=== PATIENT | male | born 1995 | race Caucasian/White ===

== ENCOUNTER 2023-02-03 20:57 | Emergency (ER) | payer SELFPAY ==
[2023-02-03 21:02] VITALS: RESP 18; TEMP 98.2; BMI 29.1
[2023-02-03] MEDS ORDERED: ACETAMINOPHEN 1000 MG/100 ML BAG IVPB ONE (21:56)
[2023-02-03] MEDS ORDERED: ACETAMINOPHEN INJECTION 100 ML IVPB ONE (22:05)
[2023-02-03 22:18] LABS: BASO % 0.4 % (0-2.0); EOS % 3.3 % (0-4.5); HEMATOCRIT 43.1 % (35.4-49); HEMOGLOBIN 15.2 GM/dL (11.7-16.9); LYMPH % 25.2 % (8-40); MCH 29.3 pg (25.7-33.7); MCHC 35.2 g/dl (32.0-35.9); MEAN CELL VOLUME 83.2 fl (80-96); MEAN PLT VOLUME 8.4 fl (7.5-11.1); MONO % 7.3 % (3.8-10.2); NEUT % 63.8 % (42.8-82.8); PH,URINE 7.5 (5.0-8.0); PLATELET COUNT 245 10^3/uL (134-434); RBC 5.18 M/mm3 (4.00-5.60); URINE APPEARANCE CLEAR; URINE BILIRUBIN NEGATIVE (NEGATIVE); URINE COLOR YELLOW; URINE GLUCOSE (UA) NEGATIVE (NEGATIVE); URINE KETONE TRACE (NEGATIVE); URINE LEUK ESTERASE NEGATIVE (NEGATIVE); URINE NITRITE NEGATIVE (NEGATIVE); URINE PROTEIN NEGATIVE (NEGATIVE); WHITE BLOOD COUNT 5.6 K/mm3 (4.0-10.0)
[2023-02-03 22:37] LABS: CALCIUM 9.6 mg/dL (8.5-10.1)
[2023-02-03 22:38] LABS: ALBUMIN 4.3 g/dl (3.4-5.0); BLOOD UREA NITROGEN 16.4 mg/dL (7-18)
[2023-02-03 22:41] LABS: CREATININE 1.1 mg/dL (0.55-1.3)
[2023-02-03 22:43] LABS: BILIRUBIN,TOTAL 0.5 mg/dL (0.2-1); TOT PROT 7.4 g/dl (6.4-8.2)
[2023-02-03] MEDS ORDERED: KETOROLAC TROMETHAMINE 30 MG/1 ML VIAL ONE (22:46)
[2023-02-03] MEDS ORDERED: KETOROLAC TROMETHAMINE 30 MG/1 ML VIAL IVPUSH ONE (22:51)
[2023-02-03] MEDS ORDERED: LIDOCAINE 5% TOPICAL PATCH TP ONE (22:51)
[2023-02-03] MEDS ORDERED: LIDOCAINE 5% TOPICAL PATCH ONE (22:52)
[2023-02-04 00:33] VITALS: BP 123/67; PULSE 80
[2023-02-04] MEDS ORDERED: LIDOCAINE PATCH REMOVAL MC ONE (11:00)
== END 2023-02-04 00:33 | disposition home or self-care (01) ==
LOC: JER 20:57 → JERFT 20:57 → JER 02-04 00:33
PROC: 3E033GC Introduction of Other Therapeutic Substance into Peripheral Vein, Percutaneous Approach (ICD-10-PCS; principal; 2023-02-03)
DX: M54.50 Low back pain, unspecified (principal); R35.0 Frequency of micturition
CPT/HCPCS: 36415; 72131-TC; 74176-TC; 80053; 81003; 85025; 87086; 99284-25